=== PATIENT | female | born 1955 | race Caucasian/White ===

== ENCOUNTER 2019-02-02 11:01 | Inpatient (IN) ==
[2019-02-02] MEDS ORDERED: CeFAZolin Syr 2,000MG/20 ML 2,000 MG/20 ML SYRINGE IVPB ONE (11:30)
[2019-02-02] MEDS ORDERED: Albuterol 2.5 MG/3 ML NEBULIZER IH PRN (11:30)
[2019-02-02] MEDS ORDERED: Ringers Solution, Lactated 1,000 ML IVC SCH ×2 (11:30→17:44)
[2019-02-02] MEDS ORDERED: *HR* OxyCODONE Immed Rel 5 MG TABLET PO ONE (12:53)
[2019-02-02] MEDS ORDERED: Acetaminophen IV 1,000 MG/100 ML INFUS..BTL IVPB ONE (12:53)
[2019-02-02] MEDS ORDERED: Pregabalin 75 MG CAPSULE PO ONE (12:53)
[2019-02-02] MEDS ORDERED: *HR* Midazolam HCl 2 MG/2 ML VIAL ONE (14:11)
[2019-02-02] MEDS ORDERED: *HR* FentaNYL (PF) 100 MCG/2 ML VIAL ONE (14:11)
[2019-02-02] MEDS ORDERED: Propofol 500 MG/50 ML INFUS..BTL ONE ×2 (14:17→15:56)
[2019-02-02] MEDS ORDERED: Lidocaine -MPF 2% 2 ML VIAL ONE (14:17)
[2019-02-02] MEDS ORDERED: *HR* PHENYLEPHRINE 1,000 MCG/10 ML SYRINGE IVP ONE (14:29)
[2019-02-02] MEDS ORDERED: Ethanol\\Acetic Acid\\Na Ace\\Ben 1,000 ML IRRIG.SOLN IR ONE (14:49)
[2019-02-02] MEDS ORDERED: *HR* HYDROmorphone (PF) 1 MG/ML SYRINGE IVP PRN (15:29)
[2019-02-02] MEDS ORDERED: *HR* Promethazine 25 MG/ML VIAL IVP PRN ×2 (15:29→17:44)
[2019-02-02] MEDS ORDERED: Ondansetron 4 MG/2 ML VIAL IVP ONE (15:29)
[2019-02-02] MEDS ORDERED: *HR* Meperidine 25 MG/ML SYRINGE IVP PRN (15:29)
[2019-02-02 17:37] LABS: Hematocrit 37.9 % (35.3-44.9); Hemoglobin 13.3 g/dL (11.5-15.4)
[2019-02-02] MEDS ORDERED: MOM Conc 10 ML UD.LIQ PO PRN (17:44)
[2019-02-02] MEDS ORDERED: Naloxone 0.4 MG/ML INJ IVP PRN (17:44)
[2019-02-02] MEDS ORDERED: Fluticasone Propionate Nasal 50 MCG/SPRAY BOTTLE NS PRN (17:44)
[2019-02-02] MEDS ORDERED: *HR* OxyCODONE/APAP 5/325 TABLET PO PRN (17:44)
[2019-02-02] MEDS ORDERED: Ondansetron 4 MG/2 ML VIAL IVP PRN (17:44)
[2019-02-02] MEDS ORDERED: Sennosides 8.6 MG TABLET PO PRN (17:44)
[2019-02-02] MEDS ORDERED: traMADol 50 MG TABLET PO PRN (17:44)
[2019-02-02] MEDS: *HR* OxyCODONE Immed Rel 5 MG TABLET PO PRN (19:36)
[2019-02-02] MEDS: Ascorbic Acid 500 MG TABLET PO SCH (20:04)
[2019-02-02] MEDS ORDERED: Ketorolac 30 MG/ML VIAL IVP PRN (20:13)
[2019-02-02] MEDS ORDERED: Temazepam 15 MG CAPSULE PO PRN (21:00)
[2019-02-02] MEDS: Acetaminophen IV 1,000 MG/100 ML INFUS..BTL IVPB PRN (22:04)
[2019-02-03] MEDS: *HR* OxyCODONE Immed Rel 5 MG TABLET PO PRN ×5 (02:23→22:17)
[2019-02-03] MEDS: Levothyroxine 25 MCG TABLET PO SCH (05:11)
[2019-02-03 05:47] LABS: Basophils % 0.3 %; Eosinophils % 0.1 %; Hematocrit 36.9 % (35.3-44.9); Hemoglobin 12.5 g/dL (11.5-15.4); Immature Granulocytes % 0.4 % (0-4); Lymphocytes # 1.1 K/mcL (0.6-4.6); Lymphocytes % 9.6 %; Mean Corpuscular HGB Conc 33.9 g/dL (31.6-35.5); Mean Corpuscular Hemoglobin 30.6 pg (28.0-33.3); Mean Corpuscular Volume 90.2 fL (83.0-100.0); Mean Platelet Volume 9.5 fL (9.4-12.4); Monocytes # 1.3 K/mcL (0.0-1.3); Monocytes % 11.4 %; Neutrophils # 8.7 K/mcL (1.6-8.9); Platelet Count 212 K/mcL (140-400); Red Blood Count 4.09 M/mcL (3.82-4.97); Segmented Neutrophils % 78.2 %; White Blood Count 11.2 K/mcL (4.3-11.1)
[2019-02-03 06:08] LABS: BUN/Creatinine Ratio 15 (6-26); Blood Urea Nitrogen 12 mg/dL (8-23); Carbon Dioxide 24 mEq/L (23-29); Chloride 101 mEq/L (98-107); Glucose 149 mg/dL (70-105); Osmolality,Calculated 285 (280-300); Potassium 3.8 mEq/L (3.5-5.1); Sodium 136 mEq/L (136-145); eGFR For African Americans > 60 (> 60); eGFR For Non-African Americans > 60 (> 60)
[2019-02-03] MEDS: Ascorbic Acid 500 MG TABLET PO SCH ×2 (06:43→17:12)
[2019-02-03] MEDS: Acetaminophen IV 1,000 MG/100 ML INFUS..BTL IVPB PRN (08:16)
[2019-02-03] MEDS ORDERED: Multivit/Ca/Min/Fe/FA 1 TAB TABLET PO SCH (09:00)
[2019-02-03] MEDS ORDERED: BuPROPion XL (24 HR) 150 MG TABLET PO SCH (09:00)
[2019-02-03] MEDS ORDERED: Venlafaxine XR (24 HR) 75 MG CAP.ER.24H PO SCH (09:00)
[2019-02-03] MEDS ORDERED: *HR* Enoxaparin 30 MG/0.3 ML SYRINGE SQ SCH (11:39)
[2019-02-03] MEDS: *HR* Enoxaparin 30 MG/0.3 ML SYRINGE SQ SCH ×2 (11:57→17:12)
[2019-02-03] MEDS: Acetaminophen 325 MG TABLET PO SCH ×3 (14:36→23:26)
[2019-02-03] MEDS: Celecoxib 100 MG CAPSULE PO SCH ×2 (17:12→20:05)
[2019-02-04] MEDS: *HR* OxyCODONE Immed Rel 5 MG TABLET PO PRN (04:00)
[2019-02-04] MEDS: Acetaminophen 325 MG TABLET PO SCH (05:48)
[2019-02-04] MEDS: Levothyroxine 25 MCG TABLET PO SCH (05:48)
[2019-02-04] MEDS: *HR* Enoxaparin 30 MG/0.3 ML SYRINGE SQ SCH (05:49)
[2019-02-04 06:02] LABS: Basophils % 0.5 %; Eosinophils # 0.1 K/mcL (0.0-0.6); Hematocrit 36.4 % (35.3-44.9); Hemoglobin 12.4 g/dL (11.5-15.4); Immature Granulocytes % 0.5 % (0-4); Lymphocytes # 1.5 K/mcL (0.6-4.6); Mean Corpuscular HGB Conc 34.1 g/dL (31.6-35.5); Mean Corpuscular Hemoglobin 30.2 pg (28.0-33.3); Mean Corpuscular Volume 88.8 fL (83.0-100.0); Mean Platelet Volume 9.4 fL (9.4-12.4); Monocytes # 1.4 K/mcL (0.0-1.3); Monocytes % 15.9 %; Neutrophils # 5.7 K/mcL (1.6-8.9); Platelet Count 217 K/mcL (140-400); Red Cell Distribution Width 12.2 % (11.5-14.5); Segmented Neutrophils % 65.1 %; White Blood Count 8.8 K/mcL (4.3-11.1)
[2019-02-04 06:17] LABS: BUN/Creatinine Ratio 12 (6-26); Blood Urea Nitrogen 11 mg/dL (8-23); Calcium 9.1 mg/dL (8.6-10.3); Carbon Dioxide 29 mEq/L (23-29); Chloride 102 mEq/L (98-107); Glucose 132 mg/dL (70-105); Osmolality,Calculated 285 (280-300); Potassium 3.8 mEq/L (3.5-5.1); Sodium 137 mEq/L (136-145); eGFR For African Americans > 60 (> 60); eGFR For Non-African Americans > 60 (> 60)
[2019-02-04 06:52] VITALS: BP 138/76
== END 2019-02-04 14:20 | disposition home health service (06) | DRG 470 ==
LOC: SAMDAY 11:01 → 3NENU 17:36
PROVIDERS: ADMIT Orthopaedic Surgery; ATTEND Orthopaedic Surgery

== ENCOUNTER 2019-09-06 10:29 | Inpatient (IN) ==
[~2019-09-06 10:29] MED LIST: Vancomycin 1,250 MG/262.5 ML IV.SOLN IVPB ONE
[2019-09-06] MEDS ORDERED: Ringers Solution, Lactated 1,000 ML IVC SCH ×2 (10:30→16:55)
[2019-09-06] MEDS ORDERED: CeFAZolin Syr 2,000MG/20 ML 2,000 MG/20 ML SYRINGE IVPB ONE (10:51)
[2019-09-06] MEDS ORDERED: Famotidine 20 MG/2 ML VIAL IVP ONE (12:00)
[2019-09-06] MEDS ORDERED: Acetaminophen IV 1,000 MG/100 ML INFUS..BTL IVPB ONE (12:00)
[2019-09-06] MEDS ORDERED: *HR* Midazolam HCl 2 MG/2 ML VIAL ONE (13:01)
[2019-09-06] MEDS ORDERED: *HR* FentaNYL (PF) 100 MCG/2 ML VIAL ONE (13:01)
[2019-09-06] MEDS ORDERED: Lidocaine -MPF 2% 2 ML VIAL ONE (13:01)
[2019-09-06] MEDS ORDERED: Ethanol\\Acetic Acid\\Na Ace\\Ben 1,000 ML IRRIG.SOLN IR ONE (13:08)
[2019-09-06] MEDS ORDERED: *HR* PHENYLEPHRINE 1,000 MCG/10 ML SYRINGE IVP ONE (14:10)
[2019-09-06] MEDS ORDERED: Tranexamic Acid 1,000 MG/10 ML VIAL ONE (14:22)
[2019-09-06] MEDS ORDERED: Dexamethasone 4 MG/ML VIAL ONE (14:26)
[2019-09-06] MEDS ORDERED: Ondansetron 4 MG/2 ML VIAL ONE (14:26)
[2019-09-06] MEDS ORDERED: *HR* Promethazine 25 MG/ML VIAL IVP PRN ×2 (14:38→16:55)
[2019-09-06] MEDS ORDERED: Ondansetron 4 MG/2 ML VIAL IVP ONE (14:38)
[2019-09-06] MEDS ORDERED: Morphine Sulfate 2 MG/ML SYRINGE IVP PRN (14:38)
[2019-09-06] MEDS ORDERED: *HR* Propofol 200 MG/20 ML VIAL IVP ONE (15:16)
[2019-09-06] MEDS ORDERED: Vancomycin 1,000 MG VIAL ONE (15:26)
[2019-09-06 16:27] LABS: Hematocrit 42.7 % (35.3-44.9); Hemoglobin 14.1 g/dL (11.5-15.4)
[2019-09-06] MEDS ORDERED: Sennosides 8.6 MG TABLET PO PRN (16:55)
[2019-09-06] MEDS ORDERED: Dextrose Gel 15 GM/37.5 ML TUBE PO PRN ×4 (16:55)
[2019-09-06] MEDS ORDERED: *HR* Dextrose 50 % in Water (Syg) 50 ML SYRINGE IVP PRN (16:55)
[2019-09-06] MEDS ORDERED: *HR* OxyCODONE/APAP 5/325 TABLET PO PRN (16:55)
[2019-09-06] MEDS ORDERED: Ibuprofen 200 MG TABLET PO PRN (16:55)
[2019-09-06] MEDS ORDERED: MOM Conc 10 ML UD.LIQ PO PRN (16:55)
[2019-09-06] MEDS ORDERED: Fluticasone Propionate Nasal 50 MCG/SPRAY BOTTLE NS PRN (16:55)
[2019-09-06] MEDS ORDERED: Naloxone 0.4 MG/ML INJ IVP PRN (16:55)
[2019-09-06] MEDS ORDERED: Ondansetron 4 MG/2 ML VIAL IVP PRN (16:55)
[2019-09-06] MEDS ORDERED: D5% in Water 1,000 ML IVC PRN (16:55)
[2019-09-06] MEDS: Ascorbic Acid 500 MG TABLET PO SCH (17:49)
[2019-09-06] MEDS: Insulin LISPRO 300 UNITS/3 ML VIAL SQ SCH (17:57)
[2019-09-06] MEDS: *HR* OxyCODONE Immed Rel 5 MG TABLET PO PRN (19:01)
[2019-09-06] MEDS ORDERED: Insulin LISPRO 300 UNITS/3 ML VIAL SQ SCH (21:00)
[2019-09-06] MEDS: CeFAZolin 2 GM/120 ML BAG IVPB SCH (21:26)
[2019-09-06] MEDS ORDERED: Ketorolac 30 MG/ML VIAL IVP PRN (21:33)
[2019-09-06] MEDS: Gabapentin 300 MG CAPSULE PO SCH (22:08)
[2019-09-07] MEDS: *HR* OxyCODONE Immed Rel 5 MG TABLET PO PRN (00:23)
[2019-09-07] MEDS: CeFAZolin 2 GM/120 ML BAG IVPB SCH (04:44)
[2019-09-07 06:06] LABS: Basophils % 0.2 %; Eosinophils % 0.1 %; Hematocrit 39.7 % (35.3-44.9); Hemoglobin 13.3 g/dL (11.5-15.4); Immature Granulocytes % 0.2 % (0-4); Lymphocytes # 1.5 K/mcL (0.6-4.6); Lymphocytes % 12.1 %; Mean Corpuscular HGB Conc 33.5 g/dL (31.6-35.5); Mean Corpuscular Hemoglobin 29.8 pg (28.0-33.3); Mean Corpuscular Volume 88.8 fL (83.0-100.0); Mean Platelet Volume 9.1 fL (9.4-12.4); Monocytes # 1.3 K/mcL (0.0-1.3); Monocytes % 10.9 %; Neutrophils # 9.5 K/mcL (1.6-8.9); Platelet Count 249 K/mcL (140-400); Red Blood Count 4.47 M/mcL (3.82-4.97); Red Cell Distribution Width 12.3 % (11.5-14.5); Segmented Neutrophils % 76.5 %; White Blood Count 12.3 K/mcL (4.3-11.1)
[2019-09-07 06:13] LABS: Calcium 9.3 mg/dL (8.6-10.3); Potassium 4.3 mEq/L (3.5-5.1)
[2019-09-07 08:14] VITALS: BP 154/79
[2019-09-07] MEDS ORDERED: Aspirin Enteric Coated 81 MG Tablet PO SCH ×2 (09:00)
[2019-09-07] MEDS ORDERED: Multivit/Ca/Min/Fe/FA 1 TAB TABLET PO SCH (09:00)
[2019-09-07] MEDS: Gabapentin 300 MG CAPSULE PO SCH (09:17)
[2019-09-07] MEDS: Ascorbic Acid 500 MG TABLET PO SCH (09:19)
[2019-09-07] MEDS: Insulin LISPRO 300 UNITS/3 ML VIAL SQ SCH ×2 (09:52→14:38)
== END 2019-09-07 13:15 | disposition home health service (06) | DRG 468 ==
LOC: SAMDAY 10:29 → 3NENU 16:41
PROVIDERS: ADMIT Orthopaedic Surgery; ATTEND Orthopaedic Surgery